=== PATIENT | male | born 1940 | race Caucasian/White ===

== ENCOUNTER 2018-06-25 11:59 | Emergency (ER) | payer MEDICARE, BC ==
[2018-06-25 12:19] VITALS: BP 136/82; PULSE 73; RESP 18; TEMP 98.2
--- NOTE | 2018-06-25 12:59 | ED ---
Fall HPI - General Chief Complaint: Fall Stated Complaint: fall Time Seen by Provider: 06/25/18 12:20 Source: patient Mode of arrival: ambulatory - History of Present Illness Initial Comments: 77-year-old male presents emergency Department chief complaint of fall. Patient states that he was walking his dog states he Stepped on edge of a curb states he fell over Himself. Patient claims right foot pain, right sided rib pain. Patient did have some abrasions on his right hand though he states she's of that he ends tenderness no head injury no loss conscious. Denies any neck, back pain. - Related Data Home Medications Medication Instructions Recorded Confirmed Allopurinol [Zyloprim] 300 mg PO DAILY 06/25/18 06/25/18 Aspirin [[place] Aspirin EC] 81 mg PO DAILY 06/25/18 06/25/18 B Complex-Vit C-Vit E-Zinc [Z-Bec] 1 tab PO DAILY 06/25/18 06/25/18 Losartan [Cozaar] 50 mg PO DAILY 06/25/18 06/25/18 Simvastatin [Zocor] 20 mg PO HS 06/25/18 06/25/18 Vitamin E 1,000 unit PO DAILY 06/25/18 06/25/18 Allergies Allergy/AdvReac Type Severity Reaction Status Date / Time cefuroxime [From Ceftin] Allergy Unknown Verified 06/25/18 12:27 Review of Systems ROS Statement: Those systems with pertinent positive or pertinent negative responses have been documented in the HPI. ROS Other: All systems not noted in ROS Statement are negative. Past Medical History Past Medical History: Hyperlipidemia, Hypertension Additional Past Medical History / Comment(s): gout History of Any Multi-Drug Resistant Organisms: None Reported Past Surgical History: Orthopedic Surgery Past Psychological History: No Psychological Hx Reported Smoking Status: Former smoker Past Alcohol Use History: None Reported Past Drug Use History: None Reported General Exam Limitations: no limitations General appearance: alert, in no apparent distress Head exam: Present: atraumatic, normocephalic, normal inspection Eye exam: Present: normal appearance, PERRL, EOMI. Absent: scleral icterus, conjunctival injection, periorbital swelling ENT exam: Present: normal exam, normal oropharynx, mucous membranes moist Neck exam: Present: normal inspection, full ROM. Absent: tenderness, meningismus, lymphadenopathy Respiratory exam: Present: normal lung sounds bilaterally, chest wall tenderness (Right-sided). Absent: respiratory distress, wheezes, rales, rhonchi, stridor Cardiovascular Exam: Present: regular rate, normal rhythm, normal heart sounds. Absent: systolic murmur, diastolic murmur, rubs, gallop, clicks GI/Abdominal exam: Present: soft, normal bowel sounds. Absent: distended, tenderness, guarding, rebound, rigid Extremities exam: Present: other (Right foot there is mild tenderness to lateral portion, mild swelling, mild ecchymosis neurovascular intact, no malleoli tenderness no knee tenderness. Hips full range of motion nontender, right hand noted some abrasions though no tenderness, full range of motion of the right and left upper extremity) Back exam: Present: full ROM. Absent: tenderness, paraspinal tenderness, vertebral tenderness Neurological exam: Present: alert, oriented X3, CN II-XII intact, reflexes normal. Absent: motor sensory deficit Skin exam: Present: warm, dry, intact, normal color. Absent: rash Course Vital Signs 06/25/18 12:16 Temperature 98.2 F Pulse Rate 73 Respiratory 18 Rate Blood Pressure 136/82 O2 Sat by Pulse 99 Oximetry Procedures - Orthopedic Splinting/Casting Injury #1 Side: right Lower Extremity Injury Location: short leg, foot Lower Extremity Immobilizer: posterior splint, synthetic pre-padded splint Other Orthopedic Equipment: crutches, walker Medical Decision Making - Medical Decision Making 77-year-old male presented for a mechanical fall. Patient has rib contusions, right foot fracture. Patient was splinted and will follow-up with orthopedics. Return parameters were discussed. Disposition Clinical Impression: Fall, Contusion of rib on right side, Foot fracture, right Disposition: HOME SELF-CARE Condition: Stable Instructions (If sedation given, give patient instructions): Foot Fracture in Adults (ED) Additional Instructions: Please return to the Emergency Department if symptoms worsen or any other concerns. Is patient prescribed a controlled substance at d/c from ED?: No Referrals: Osman Duff DO [Primary Care Provider] - 1-2 days [place] Mariee MD [Medical Doctor] - 1-2 days Time of Disposition: 13:35
--- NOTE | 2018-06-25 13:03 | XR ---
EXAMINATION TYPE: XR foot complete RT DATE OF EXAM: 06/25/2018 COMPARISON: NONE HISTORY: Pain TECHNIQUE: Three views are submitted. FINDINGS: Diffuse osteopenia with arthropathy of the first MTP joint. There is postsurgical change involving th e tarsal metatarsal joint. There is a linear hairline fracture through the base of the fifth metatars al. Calcaneal spur noted and there are vascular calcifications. Suspect a nondisplaced fracture invol ving the base of the fifth proximal phalanx. IMPRESSION: 1. There is a fracture nondisplaced base fifth metatarsal. 2. Questionable fracture hairline through proximal phalanx fifth digit nondisplaced.
--- NOTE | 2018-06-25 13:06 | XR ---
EXAMINATION TYPE: XR ribs RT w pa chest xray DATE OF EXAM: 06/25/2018 COMPARISON: NONE TECHNIQUE: PA view of the chest and 4 views of the ribs are submitted. HISTORY: Pain FINDINGS: The lungs are clear and there is no pneumothorax, pleural effusion, or focal pneumonia. Osseous structures intact. No acute displaced rib fracture. Scoliotic curvature multilevel degenerati ve disc disease noted. IMPRESSION: 1. No acute displaced rib fracture.
== END 2018-06-25 13:49 | disposition home or self-care (01) ==
LOC: EC 11:59
DX: S92.901A Unspecified fracture of right foot, initial encounter for closed fracture (principal); S20.211A Contusion of right front wall of thorax, initial encounter; S60.511A Abrasion of right hand, initial encounter; E78.5 Hyperlipidemia, unspecified; I10 Essential (primary) hypertension; M10.9 Gout, unspecified; Z87.891 Personal history of nicotine dependence; Z88.1 Allergy status to other antibiotic agents; Z79.82 Long term (current) use of aspirin; Z79.899 Other long term (current) drug therapy; W01.0XXA Fall on same level from slipping, tripping and stumbling without subsequent striking against object, initial encounter; Y93.K1 Activity, walking an animal; Y92.009 Unspecified place in unspecified non-institutional (private) residence as the place of occurrence of the external cause
CPT/HCPCS: 29515; 99283

== ENCOUNTER → 2020-07-29 | Outpatient (CLI) | payer MEDICARE, BC | END | disposition home or self-care (01) | LOC: LABWHC1 13:47 | PROVIDERS: ATTEND Urology | DX: R97.20 Elevated prostate specific antigen [PSA] (principal) | CPT/HCPCS: 36415; 84153 ==

== ENCOUNTER → 2020-11-12 | Outpatient (CLI) | payer MEDICARE, BC | END | disposition home or self-care (01) | LOC: LABWHC1 14:31 | PROVIDERS: ATTEND Psychiatry & Neurology Neurology | DX: Z01.818 Encounter for other preprocedural examination (principal) | CPT/HCPCS: 36415; 93005 ==

== ENCOUNTER → 2021-10-28 | Outpatient (CLI) | payer MEDICARE, BC ==
--- NOTE | 2021-10-28 20:54 | CT ---
EXAMINATION TYPE: CT sinus wo con CT DLP: 693 mGycm, Automated exposure control for dose reduction was used. DATE OF EXAM: 10/28/2021 4:44 PM COMPARISON: None CLINICAL INDICATION:Male, 80 years old with history of J32.9 CHRONIC SINUSITIS, chronic sinusitis CONTRAST: None. TECHNIQUE: Multiple thin axial images were obtained through the paranasal sinuses without the use of IV contrast. Additional coronal and sagittal reformatted images were submitted for evaluation. FINDINGS: Frontal sinuses: Normally developed and aerated. Frontal Recess: Clear Modified [place] Score: Right 0 = 0% Opacified, Left 0 = 0% Opacified Maxillary Sinuses: There is mucosal thickening within the maxillary sinus with antrostomy changes cristel aterally. Modified [place] Score: Right 4 = 76-99% Opacified, Left 1 = 1-25% Opacified Maxillary Infundibula([facility]): Patent bilaterally secondary to antrostomy changes. Modified Twyla-[place] Score: Right 1 = Partially obstructed, Left 0 = Completely patent Ethmoid sinuses: Normally developed with mucosal thickening/secretions appreciated most pronounced on the right.. Ethmoidal notch: Unprotected bilateral anterior ethmoid arteries. Modified [place] Score: Anterior Right 3 = 51-75% Opacified, Left 1 = 1-25% Opacified Posterior Right 3 = 51-75% Opacified, Left 1 = 1-25% Opacified Sphenoid sinuses: Normally developed with scattered mucosal thickening. There is sellar sphenoid sinu s pneumatization without evidence of dehiscence. No dehiscence of carotid canal. No evidence of opti c nerve dehiscence within the sphenoid sinus. No evidence of [place] cells. Sphenoethmoidal recesses: Clear. Modified Twyla-[place] Score: Right 1 = 1-25% Opacified, Left 0 = 0% Opacified. Nasal septum: Within normal limits.. Nasal Turbinates: Postsurgical changes to the left and right middle turbinates. Mastoid air cells & middle ears: The air cells are clear. The middle ears are grossly unremarkable. Modified Soft tissues & Brain: Partially seen without gross abnormality. Globes are intact. Other: Cribriform plate demonstrates asymmetric right Keros classification type 2 cribriform plate and left type I. No evidence of bony dehiscence of skull base. Lamina papyracea is intact without evidence of remote orbital fracture or orbital prolapse into the e thmoid sinus. Atherosclerosis of the arterial vasculature. Mild multilevel disc degeneration changes. IMPRESSION: 1. Paranasal sinus disease most pronounced in the right maxillary and right ethmoid air cells and to a lesser fact the right sphenoid sinus. 2. The frontonasal and sphenoethmoidal recesses are clear. Mild/minimal obstruction of the right antr ostomy secondary mucosal thickening. 3. Opacification burden of 15/54 on the Modified [place] scoring system. [facility], 10/28/2021 4:44 PM, [id number], [id number], CT sinus wo con
== END | disposition home or self-care (01) ==
LOC: RADCTMAIN 16:20
PROVIDERS: ATTEND Otolaryngology
DX: J34.89 Other specified disorders of nose and nasal sinuses (principal)
CPT/HCPCS: 70486

== ENCOUNTER 2021-12-16 10:47 | Day surgery (SDC) | payer MEDICARE, BC ==
--- NOTE | 2021-12-15 20:24 | HP ---
HISTORY AND PHYSICAL CHIEF COMPLAINT: Snoring and difficulty breathing through his nose. HISTORY OF PRESENT ILLNESS: This patient is a pleasant 81-year-old male who was recently seen in my office complaining of having difficulty breathing in his nose. The patient states that he had a nasal polyp removed from the left side of his nose approximately a year ago. He is complaining now that he is having difficulty breathing through both sides of his nose, especially at night. At the time that he was seen in my office, intranasal examination revealed he had slight septal deviation but severe bilateral hypertrophy of the inferior turbinates. I was not able to see any nasal polyps in either the right or left nasal chamber. After a lengthy discussion with this patient, it was recommended that we schedule him for a possible caudal septoplasty with a definite bilateral resection of the inferior turbinates under general anesthesia. The patient understands that if we simply do the turbinates, he will be able to go home the same day, but if we actually do a caudal septoplasty, he may have to stay in the hospital overnight. The surgery will be done under general anesthesia. PAST MEDICAL HISTORY: Past medical history reveals that he has allergy to Ceftin. PAST SURGICAL HISTORY: Previous surgeries include tonsillectomy, adenoidectomy, appendectomy, lower back surgery, colonoscopy, and intranasal polypectomy on the left side. CURRENT MEDICATIONS: Include: 1. Astelin nasal spray. 2. Simvastatin. 3. Allopurinol. 4. Losartan. 5. Baby aspirin. REVIEW OF SYSTEMS: CARDIOVASCULAR: Positive for hypertension. METABOLIC/ENDOCRINE: Positive for hypercholesterolemia and gout. The remainder of review of systems is essentially unremarkable. PHYSICAL EXAMINATION: GENERAL: The patient is a pleasant 81-year-old male who was alert and cooperative. HEENT: Patient is normocephalic. Tympanic membranes are normal. Middle ear spaces are free of any fluid or infection. Pupils are equal, round, react to light and accommodation. Extraocular movements are within normal limits. Intranasal examination reveals slight septal deviation with severe bilateral hypertrophy of the inferior turbinates. Examination of oropharynx, cranial nerves 2 through 12, and remainder of the head and neck exam is unremarkable. CHEST/CARDIOVASCULAR: Both lung rivas are clear to percussion and auscultation. Patient is in regular sinus rhythm. S1 and S2 are present without evidence of any murmurs, S3s, or S4s. Peripheral pulses are bilaterally symmetrical. ABDOMEN: There is no evidence of any masses, megaly, or tenderness. The abdomen is soft. SKIN: Unremarkable. MUSCULOSKELETAL/NEUROLOGICAL: Within normal limits. PELVIC/RECTAL: Deferred at this time because the patient has this done on a regular basis at his family physician's office. 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 PLAN: The patient is scheduled to undergo a possible caudal septoplasty with a definite bilaterally resection of the inferior turbinates under general anesthesia in a.m. Attention, RNs in the pre-surgical area: I have not ordered any pre-surgical prophylactic antibiotics for this patient. If the Pharmacy Department sends any pre- surgical prophylactic antibiotics to the pre-surgical area for this patient, please cancel that order and return the medication to the pharmacy department. Also, please make sure that the patient's account is credited appropriately. I have discussed the risks, benefits and alternative therapies for the above-mentioned procedure and for both sedation/analgesia as well as necessary blood product administration, if indicated, as they pertain to this patient. The patient has indicated his understanding and acceptance of the risks and procedures discussed. MMODL / IJN: [id number] /
[~2021-12-16 10:47] MED LIST: ACETAMINOPHEN IV (For NPO) 1,000 MG in EMPTY BAG 1 BAG IVPB PRN; DEXAMETHASONE SOD PHOSPHATE 4 MG/ML 1 ML VIAL IV ONE; HYDROmorphone 0.5 MG/0.5 ML SYRINGE IVP PRN; LACTATED RINGERS 1,000 ML IV SCH; MIDAZOLAM 2 MG/2 ML VIAL IV PRN; ONDANSETRON 4 MG/2 ML VIAL IVP ONE; Pre Op ABX Message 1 EACH MISC MISCELLANE ONE
[2021-12-16] MEDS ORDERED: MIDAZOLAM 2 MG/2 ML VIAL ONE (12:32)
[2021-12-16] MEDS ORDERED: SUCCINYLCHOLINE CHLORIDE 200 MG/10 ML VIAL IV ONE (12:32)
[2021-12-16] MEDS ORDERED: ROCURONIUM 10 MG/ML (5 ML VIAL) IV ONE (12:32)
[2021-12-16] MEDS ORDERED: NEOSTIGMINE 1 MG/ML 10 ML VIAL ONE (12:32)
[2021-12-16] MEDS ORDERED: PROPOFOL 10 MG/ML 20 ML VIAL IV ONE (12:32)
[2021-12-16] MEDS ORDERED: PHENYLEPHRINE-0.9% NACL SYG 1,000 MCG/10 ML SYRINGE ONE (12:32)
[2021-12-16] MEDS ORDERED: fentaNYL (PF) 50 MCG/ML 2 ML AMP ONE (12:32)
[2021-12-16] MEDS ORDERED: LIDOCAINE 2% INJ 20 MG/ML (2 ML VIAL) ONE (12:32)
[2021-12-16] MEDS ORDERED: GLYCOPYRROLATE 0.2 MG/ML 2 ML VIAL ONE (12:32)
[2021-12-16] MEDS ORDERED: CLINDAMYCIN IV ONE ×2 (12:34)
[2021-12-16] MEDS ORDERED: SODIUM CHLORIDE 0.9% IV ONE ×2 (12:34)
[2021-12-16] MEDS ORDERED: OXYMETAZOLINE 0.05% NASL SPRAY 1 SPRAY BOTTLE EA NOSTRIL ONE (12:56)
[2021-12-16] MEDS ORDERED: LACTATED RINGERS 1,000 ML IV ONE (13:46)
[2021-12-16 15:01] VITALS: TEMP 97
[2021-12-16 16:52] VITALS: RESP 18
[2021-12-16 16:55] VITALS: PULSE 70
[2021-12-16 16:56] VITALS: BP 125/81
--- NOTE | 2021-12-18 21:39 | OP ---
OPERATIVE REPORT PREOPERATIVE DIAGNOSIS: Severe bilateral hypertrophy of the inferior turbinates. POSTOPERATIVE DIAGNOSIS: Severe bilateral hypertrophy of the inferior turbinates. ANESTHESIA: General. OPERATIVE PROCEDURE: Bilateral partial resection of the inferior turbinates. COMPLICATIONS: None. ESTIMATED BLOOD LOSS: Less than 75 mL. DESCRIPTION OF PROCEDURE: The patient was placed on the operating table in supine position and after uneventful induction of endotracheal intubation, satisfactory general anesthesia was obtained. Next, the patient's head was draped in usual customary fashion. Both the right and left nasal chambers were packed with cottonoids, which had been saturated with Afrin nasal spray. These cottonoids were placed just below the right and left inferior turbinates respectively. They were left in place for a period of approximately 10 minutes to achieve maximum vasoconstriction. Upon removing the cottonoids, inspection revealed that the turbinates has shrunk down and it was revealed that the septum was essentially in the midline. That is to say there was no significant septal deviation. However, it was noted there was significant scar tissue between the perpendicular plate of the ethmoid and the partial inferior turbinectomies. Beginning on the right side, the right inferior turbinate was clamped as high as possible using a pair of curved Sue clamps. The Sue clamp was left in place for period of approximately 7 minutes to completely crush the right inferior turbinate. Upon removing the curved Sue clamp, the crushed portion of the turbinate was subsequently resected using a pair of angled heavy turbinectomy scissors in the usual fashion. Hemostasis was obtained using suction cautery. The same procedure was carried on the left side. That is to say, the left inferior turbinate was clamped with a medium curved Sue clamp as high as possible on the left inferior turbinate. The clamp was left in place for a period of approximately 7 or 8 minutes. Upon removing the clamp, the crushed portion of the inferior turbinate delineated the part to be resected. This portion of the inferior turbinate was then resected with a pair of angled heavy turbinectomy scissors. After resecting the portion of the left inferior turbinate, hemostasis was obtained using electrocautery. Next, both nasal chambers were generously coated with Surgicel powder. Once it had been established that there was no active bleeding, the procedure was terminated. There were no intraoperative complications. The patient tolerated the procedure well and was returned to the recovery room in satisfactory condition. It is to be noted that upon final inspection, it was noted that the patient had a marked improvement in both nasal airways. Estimated blood loss less than 75 mL. MMODL / IJN: [id number] /
== END 2021-12-16 17:21 | disposition home or self-care (01) ==
LOC: OR 10:47
PROVIDERS: ATTEND Otolaryngology
DX: J34.3 Hypertrophy of nasal turbinates (principal); Z88.1 Allergy status to other antibiotic agents; Z90.49 Acquired absence of other specified parts of digestive tract; I10 Essential (primary) hypertension; E78.00 Pure hypercholesterolemia, unspecified; M10.9 Gout, unspecified; E78.5 Hyperlipidemia, unspecified; Z87.891 Personal history of nicotine dependence; K21.9 Gastro-esophageal reflux disease without esophagitis; Z97.2 Presence of dental prosthetic device (complete) (partial); Z98.890 Other specified postprocedural states; Z79.891 Long term (current) use of opiate analgesic; Z79.899 Other long term (current) drug therapy; Z79.82 Long term (current) use of aspirin
CPT/HCPCS: 30140; J2250; J0330; J1100; J2710; J2405; J3010; J0131; J2370; J2704; J1170; J2001

== ENCOUNTER 2021-12-23 10:18 | Emergency (ER) | payer MEDICARE, BC ==
[2021-12-23 10:28] VITALS: TEMP 99
--- NOTE | 2021-12-23 11:55 | ED ---
ENT HPI - General Chief complaint: ENT Stated complaint: Bleeding Nose, Surgery Complication Time Seen by Provider: 12/23/21 11:28 Source: patient, RN notes reviewed, old records reviewed Mode of arrival: ambulatory Limitations: no limitations - History of Present Illness Initial comments: Patient is a pleasant 81-year-old male presents to the emergency room with complaints of epistaxis worse to the left than the right ongoing since last night slightly improved this morning and then worsened again after blowing his nose "lightly" this morning. He and one tablet, sending a delinquent bilateral partial resection of the inferior turbinates by Dr. Shearer'litzy on December 16 for severe bilateral hypertropic of the bilateral inferior turbinates. He has been holding pressure and maintaining position to help with blood flows stanching however the right nostril continues to bleed occasionally. No significant bleeding since coming back from the waiting room. In addition to chronic sinusitis is a past medical history significant for gout, hypertension and hyperlipidemia. - Related Data Home Medications Medication Instructions Recorded Confirmed Aspirin [[place] Aspirin EC] 81 mg PO DAILY 06/25/18 12/15/21 B Complex-Vit C-Vit E-Zinc [Z-Bec] 1 tab PO DAILY 06/25/18 12/16/21 Losartan [Cozaar] 50 mg PO DAILY 06/25/18 12/16/21 Simvastatin [Zocor] 20 mg PO DAILY 06/25/18 12/16/21 Vitamin E (Dl,Tocopheryl Acet) 1,000 unit PO DAILY 06/25/18 12/16/21 [Vitamin E] allopurinoL [Zyloprim] 300 mg PO DAILY 06/25/18 12/16/21 Sertraline [Zoloft] 100 mg PO DAILY 12/15/21 12/16/21 Previous Rx's Medication Instructions Recorded HYDROcodone/APAP 5-325MG [[place] 1 tab PO Q4HR PRN 3 Days #18 tab 12/15/21 5-325] levoFLOXacin 500 mg PO DAILY #10 tab 12/15/21 Allergies Allergy/AdvReac Type Severity Reaction Status Date / Time cefuroxime [From Ceftin] Allergy Intermediate Unknown Verified 12/23/21 10:28 Review of Systems ROS Statement: Those systems with pertinent positive or pertinent negative responses have been documented in the HPI. ROS Other: All systems not noted in ROS Statement are negative. Past Medical History Past Medical History: Hyperlipidemia, Hypertension Additional Past Medical History / Comment(s): gout History of Any Multi-Drug Resistant Organisms: None Reported Past Surgical History: Orthopedic Surgery, Tonsillectomy Additional Past Surgical History / Comment(s): open removal of kidney stones Lft, lithotripsy Rt, L foot fx repair with plates and screws, Rt foot surgery with some implants placed, Lasik. eye surgery cristel. remote hx of jaw surgery for underbite, cristel thumb surgery, nasal polyp surgery Past Anesthesia/Blood Transfusion Reactions: No Reported Reaction Past Psychological History: No Psychological Hx Reported Smoking Status: Former smoker Past Alcohol Use History: None Reported Past Drug Use History: None Reported General Exam Limitations: no limitations General appearance: alert, in no apparent distress Head exam: Present: atraumatic, normocephalic, normal inspection Eye exam: Present: normal appearance, PERRL. Absent: scleral icterus, conjunctival injection ENT exam: Present: other (Right knee with driveline no evidence of active bleeding. Left knee are with small amount of blood pooled in the nasal cavity. No copious amounts of blood noted. Bilateral ischemia noted. Bilateral nares patent) Expanded Ear exam: Present: normal external inspection Neck exam: Present: normal inspection. Absent: lymphadenopathy Respiratory exam: Absent: respiratory distress, accessory muscle use Cardiovascular Exam: Present: regular rate GI/Abdominal exam: Absent: distended Extremities exam: Present: normal inspection. Absent: pedal edema, joint swelling Back exam: Present: normal inspection, full ROM Neurological exam: Present: alert, oriented X3, CN II-XII intact Psychiatric exam: Present: normal affect, normal mood Skin exam: Present: warm, dry, intact, normal color. Absent: rash Course Vital Signs 12/23/21 12/23/21 10:25 12:55 Temperature 99.0 F Pulse Rate 82 86 Respiratory 20 16 Rate Blood Pressure 122/80 128/68 O2 Sat by Pulse 95 98 Oximetry Medical Decision Making - Medical Decision Making 81-year-old male presenting to the emergency room with at the [place] primarily to the left naris this time status post bilateral partial resection of the inferior turbinates on 12/16/2021 Dr. Shearer. No packing was placed at the time of surgery and was advised not to have any objects placed in. No indication for diagnostic imaging or laboratory studies. Nasal turbinate examination with otoscope revealed mild erythema near and trace amount of blood in the canal with alcohol copious amounts noted. Attempted to place nasal dressing to left turbinate however no expansion of dressing noted. No further episodes of bleeding noted after nasal dressing lightly sponged blood in turbinate. Will discharge home with follow-up with his primary care provider along with his ENT provider. Continue Levaquin as prescribed by his ENT provider. Advised not to place objects in his nose and no further blowing of his nose. Nasal precautions per previous nasal surgery reinforced. Advised to hold baby aspirin until follow-up with ENT for resumption. Case discussed with Dr. Nazario. Disposition Clinical Impression: Epistaxis Disposition: HOME SELF-CARE Instructions (If sedation given, give patient instructions): Nosebleed (ED) Additional Instructions: Please continue to monitor for signs and symptoms of nasal bleeding. Please continue to avoid blowing her nose replacing any items including Kleenex. Please follow-up with your ear nose and throat doctor. Please continue to hold aspirin and so told otherwise by your ear nose and throat doctor. Please return to the Emergency Department if symptoms worsen or any other concerns. Is patient prescribed a controlled substance at d/c from ED?: No Referrals: Maki Forte MD [Primary Care Provider] - 1-2 days Time of Disposition: 12:44
[2021-12-23 12:57] VITALS: BP 128/68; PULSE 86; RESP 16
== END 2021-12-23 12:57 | disposition home or self-care (01) ==
LOC: EC 10:18
DX: R04.0 Epistaxis (principal); E78.5 Hyperlipidemia, unspecified; I10 Essential (primary) hypertension; Z87.891 Personal history of nicotine dependence; Z88.8 Allergy status to other drugs, medicaments and biological substances; Z79.82 Long term (current) use of aspirin; Z79.899 Other long term (current) drug therapy
CPT/HCPCS: 99282

== ENCOUNTER → 2023-12-26 | Outpatient (CLI) | payer MEDICARE, BC ==
[2023-12-27 02:17] LABS: Basophils # (A) 0.09 X 10*3/uL (0.00-0.10); Basophils % (A) 1.1 %; Eosinophils # (A) 0.44 X 10*3/uL (0.04-0.35); Eosinophils % (A) 5.2 %; HCT 40.3 % (39.6-50.0); HGB 12.9 g/dL (13.0-17.0); Lymphocytes # (A) 1.55 X 10*3/uL (0.90-5.00); Lymphocytes % (A) 18.3 %; MCH 30.5 pg (27.0-32.0); MCV 95.3 FL (80.0-97.0); Monocytes # (A) 0.53 X 10*3/uL (0.20-1.00); Monocytes % (A) 6.3 %; NRBC Per 100 WBC 0 X 10*3/uL (0.00-0.01); Neutrophils # (A) 5.84 X 10*3/uL (1.80-7.70); Neutrophils % (A) 68.7 %; Platelet Count 365 X 10*3/uL (140-440); RBC 4.23 X 10*6/uL (4.40-5.60); WBC 8.48 X 10*3/uL (4.50-10.00)
[2023-12-27 02:46] LABS: ALT 13 U/L (10-49); AST 24 U/L (14-35); Albumin/Globulin Ratio 1.74 Ratio (1.60-3.17); Alkaline Phosphatase 82 U/L (41-126); Blood Urea Nitrogen 34.5 mg/dL (9.0-27.0); Calcium 9.2 mg/dL (8.7-10.3); Chloride 108 mmol/L (96-109); Chol/HDL Ratio 2.46 Ratio; Globulin 2.3 g/dL (1.6-3.3); Glucose 92 mg/dL (70-110); LDL Cholesterol,Calculated 56.7 mg/dL (0.0-131.0); Potassium 5.6 mmol/L (3.5-5.5); Sodium 140 mmol/L (135-145); Total Bilirubin 0.4 mg/dL (0.3-1.2); Total Protein 6.3 g/dL (6.2-8.2); VLDL Calculation 13.26 mg/dL (5.00-40.00)
[2023-12-27 02:55] LABS: Protein, Total 6.3 g/dL (6.2-8.2)
[2023-12-27 14:48] LABS: Free Lambda Lt Chain Qnt, Seru 2.69 mg/dL (0.57-2.63)
== END | disposition home or self-care (01) ==
LOC: LABWHC1 14:56
PROVIDERS: ATTEND Family Medicine
CPT/HCPCS: 36415; 80053; 80061; 83036; 83883; 84165; 84443; 85025; 86334